=== PATIENT | male | born 1970 | race Caucasian/White ===

== ENCOUNTER → 2023-02-05 | Outpatient (CLI) | payer BC | LOC: RAD 08:20 | DX: M47.816 Spondylosis without myelopathy or radiculopathy, lumbar region (principal); M47.817 Spondylosis without myelopathy or radiculopathy, lumbosacral region; M51.36 Other intervertebral disc degeneration, lumbar region; M51.37 Other intervertebral disc degeneration, lumbosacral region ==

== ENCOUNTER → 2023-02-15 | Outpatient (CLI) | payer BC | LOC: RAD 11:52 | DX: M54.16 Radiculopathy, lumbar region (principal) ==

== ENCOUNTER 2023-02-24 08:00 | Outpatient (RCR) | payer BC | END 2023-03-10 | LOC: PT | DX: M54.50 Low back pain, unspecified (principal) ==

== ENCOUNTER → 2023-02-25 | Outpatient (CLI) | payer BC | LOC: RAD 15:48 | DX: M47.26 Other spondylosis with radiculopathy, lumbar region (principal); M48.061 Spinal stenosis, lumbar region without neurogenic claudication ==

== ENCOUNTER 2023-03-11 08:00 | Outpatient (RCR) | payer BC | END 2023-04-08 | disposition home or self-care (01) | LOC: PT | DX: M54.50 Low back pain, unspecified (principal) ==